=== PATIENT | female | born 1965 | race Caucasian/White ===

== ENCOUNTER 2018-06-04 10:03 | Day surgery (SDC) | payer BC ==
[~2018-06-04 10:03] MED LIST: Sodium Chloride 0.9% 10 ML Syringe FLUSH PRN
[2018-06-04] MEDS: Lactated Ringers 1,000 ML IV SCH (11:00)
[2018-06-04] MEDS ORDERED: Propofol 200 MG/20 ML SDV IV ONE (11:13)
[2018-06-04] MEDS ORDERED: Midazolam 1 MG/ML 2 ML SDV IV ONE (11:13)
[2018-06-04] MEDS ORDERED: Midazolam 1 MG/ML 2 ML SDV ONE (11:17)
[2018-06-04] MEDS ORDERED: Propofol 200 MG/20 ML SDV ONE ×3 (11:17→11:42)
--- NOTE | 2018-06-04 11:17 | PCM.PN ---
- General Info Date of Service: 06/04/18 - Review of Systems Systems Review Comment:: 53-year-old female referred for her initial screening colonoscopy. She notes a chronic history of constipation but no recent change in bowel pattern. She does have some difficulty with hemorrhoids. The patient does not have any known first -degree relatives with colon cancer however does state that her [id number] recently from colon cancer and this is prompting her to proceed with colon cancer screening. She is medically stable to proceed today. I have reviewed her history and physical and no significant changes are noted. I discussed the proposed colonoscopy with the patient. Risks such as but not limited to bleeding and GI injury reviewed. She appears to understand and agrees to proceed. Patient also requests treatment for hemorrhoids. I advised her that I would not plan on surgical hemorrhoidectomy today but she desires hemorrhoid banding and pending findings we will perform this today. Expectations regarding the hemorrhoid banding are discussed. - Patient Data Vitals - Most Recent: Last Vital Signs Temp 99.3 F 06/04/18 10:00 Pulse 76 06/04/18 10:00 Resp 20 06/04/18 10:00 BP 119/79 06/04/18 10:00 Pulse Ox 97 06/04/18 10:00 Weight - Most Recent: 80.739 kg Med Orders - Current: Current Medications Lactated Ringer's (Ringers, Lactated) 1,000 mls @ 50 mls/hr IV ASDIRECTED KATHY Sodium Chloride (Saline Flush) 10 ml FLUSH Q8HR PRN PRN Reason: keep vein open - Problem List Review Problem List Initiated/Reviewed/Updated: Yes - My Orders Last 24 Hours: My Active Orders 06/03/18 14:21 Resuscitation Status Routine 06/04/18 10:00 Patient to Empty Bladder [RC] ASDIRECTED Peripheral IV Care [RC] . DIRECTED Vital Signs [RC] PER UNIT ROUTINE HCG QUALITATIVE,URINE [URCHEM] Routine Lactated Ringers [Ringers, Lactated] 1,000 ml IV ASDIRECTED Sodium Chloride 0.9% [Saline Flush] 10 ml FLUSH Q8HR PRN Peripheral IV Insertion Adult [OM.PC] Routine 06/04/18 11:15 Verify Patient Consent Obtain [RC] ASDIRECTED 06/04/18 Breakfast Nothing Per Oral Diet [DIET] - Assessment Assessment:: Colon cancer screening Hemorrhoids - Plan Plan:: Colonoscopy Possible hemorrhoid banding
--- NOTE | 2018-06-04 11:57 | PCM.OPNOTE ---
- General Post-Op/Procedure Note Date of Surgery/Procedure: 06/04/18 Operative Procedure(s): Colonoscopy. Hemorrhoid Banding Findings: Moderate Sigmoid Diverticulosis Internal and External Hemorrhoids Pre Op Diagnosis: Colon Cancer Screening. Symptomatic Hemorrhoids Post-Op Diagnosis: Sigmoid Diverticulosis. Hemorrhoids Anesthesia Technique: MAC Primary Surgeon: Puneet Rosenbaum Pathology: none Output, Urine Amount: 0 EBL in mLs: 0 Complications: None Condition: Good
--- NOTE | 2018-06-04 17:38 | OR ---
DATE OF SURGERY: 06/04/2018 SURGEON: Puneet Rosenbaum MD PREOPERATIVE DIAGNOSIS: Colon cancer screening and symptomatic hemorrhoids. POSTOPERATIVE DIAGNOSIS: Sigmoid diverticulosis and symptomatic hemorrhoids. OPERATION PERFORMED: Colonoscopy with hemorrhoid banding. INDICATIONS FOR SURGERY: This 53-year-old female presents today for her initial screening colonoscopy. She also has a longstanding history of hemorrhoids with associated symptoms and requests hemorrhoid banding if indicated. FINDINGS: The patient has a moderate degree of sigmoid diverticulosis. No acute inflammation or complications were noted from the diverticula. The remainder of the colon appears normal. No polyps were seen. The patient does have moderate sized internal and external hemorrhoids. DESCRIPTION OF PROCEDURE: The patient is taken to the operating room. She was given intravenous sedation and with her in the left lateral decubitus position, digital rectal exam was performed showing no rectal masses. The Olympus colonoscope was inserted into the rectum. Retroflexed examination of the rectal canal is performed. The scope was then carefully advanced under direct visualization through the entire length of the colon until cecum is reached. Cecal acquisition is confirmed by noting the normal internal cecal anatomy including the appendiceal orifice and ileocecal valve. The light is also noted to transilluminate the abdominal wall in the right lower quadrant. After examining the cecum, the scope was slowly withdrawn, sequentially re-examining the colonic segments until the entire colon and rectum had been fully examined. Hemorrhoids were identified during the exam and as per preop discussion hemorrhoid banding was then carried out. Moderately enlarged internal hemorrhoids at the 11 and 7 o'clock position on the patient's right side were banded. Good tissue purchase was achieved and no sign of complication was identified. The anoscope was removed and the patient was then taken from the operating room in satisfactory condition. ESTIMATED BLOOD LOSS: Zero. COMPLICATIONS: None. PROGNOSIS: Good. /[id number]/MODL
== END 2018-06-04 12:53 | disposition home or self-care (01) ==
LOC: KA.SDS 10:03
PROVIDERS: ATTEND Surgery
DX: K59.00 Constipation, unspecified (principal); K64.8 Other hemorrhoids; K64.4 Residual hemorrhoidal skin tags; K57.30 Diverticulosis of large intestine without perforation or abscess without bleeding; J01.90 Acute sinusitis, unspecified; Z79.82 Long term (current) use of aspirin; Z79.899 Other long term (current) drug therapy; Z88.8 Allergy status to other drugs, medicaments and biological substances
CPT/HCPCS: J2250; J2704; J7120

== ENCOUNTER 2018-09-02 18:39 | Emergency (ER) | payer BC ==
[2018-09-02] MEDS ORDERED: Sulfamethoxazole/Trimethoprim 800-160 MG Tab PO ONE (19:23)
[2018-09-02] MEDS ORDERED: Mupirocin Oint 22 GM Tube TOP ONE (19:23)
[2018-09-02] MEDS ORDERED: Ketorolac 60 MG/2 ML SDV IM ONE (19:23)
--- NOTE | 2018-09-02 19:28 | EDM.PDOC ---
ED HPI GENERAL MEDICAL PROBLEM - General Chief Complaint: General Stated Complaint: POSSIBLE INFECTION AT INCISION Time Seen by Provider: 09/02/18 19:00 Source of Information: Reports: Patient History Limitations: Reports: No Limitations - History of Present Illness INITIAL COMMENTS - FREE TEXT/NARRATIVE: 53 YO WF presents to ER complaining of drainage from incision site. Pt is 2 weeks s/p lymphotomy and breast reduction surgery. Pt reports she's had pain since her surgery but tonight she noticed some drainage from under her left axilla from suture site. Pt denies any erythema but states she's had intermittent swelling bilaterally since her surgery. Pt denies any increased pain, no fever/chills. Pt reports drainage was serosanguineous and foul smelling. Pt has sutures in place and was instructed to follow up with surgery in 2 weeks (4 weeks total) for suture removal. Onset: Today Location: Reports: Upper Extremity, Left Quality: Reports: Ache Severity: Mild Improves with: Reports: None Worsens with: Reports: None Associated Symptoms: Reports: No Other Symptoms - Related Data Allergies Allergy/AdvReac Type Severity Reaction Status Date / Time bupropion HCl Allergy Stomach Verified 09/02/18 19:15 [From Wellbutrin] Upset pregabalin [From Lyrica] Allergy Stomach Verified 09/02/18 19:15 Upset Home Meds: Home Meds Albuterol [Ventolin HFA] 1 - 2 puff INH Q4H PRN 06/12/13 [History] Escitalopram Oxalate [Lexapro] 20 mg PO DAILY 12/15/13 [History] Furosemide [Lasix] 20 mg PO BID PRN 12/15/13 [History] Albuterol Sulfate [Proair Hfa] 1 - 2 puff INH Q4H PRN 06/03/18 [History] Cyanocobalamin (Vitamin B-12) [Vitamin B-12] 1,000 mcg PO DAILY 06/03/18 [ History] Doxepin HCl [Doxepin] 100 mg PO BEDTIME 06/03/18 [History] Pramipexole Di-HCl [Pramipexole Dihydrochloride] 2 - 3 tab PO DAILY 06/03/18 [ History] Sulfamethoxazole/Trimethoprim [Septra DS] 1 each PO BID #20 tab 09/02/18 [Rx] Past Medical History HEENT History: Reports: Sinusitis Cardiovascular History: Reports: None Gastrointestinal History: Reports: None Genitourinary History: Reports: None 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: , Other (See Below) Other BANKRUPTCY MANAGER History: miscarriage Psychiatric History: Reports: Depression Other Psychiatric History: PTSD Hematologic History: Reports: Blood Transfusion(s) - Infectious Disease History Infectious Disease History: Reports: Chicken Pox - Past Surgical History HEENT Surgical History: Reports: Oral Surgery Other HEENT Surgeries/Procedures: oral implants Cardiovascular Surgical History: Reports: Valve Replacement Other Cardiovascular Surgeries/Procedures: 2014 GI Surgical History: Reports: Cholecystectomy Other GI Surgeries/Procedures: bariatric surgery 2010 Female Surgical History: Reports: Tubal Ligation Social & Family History - Caffeine Use Caffeine Use: Reports: Coffee - Living Situation & Occupation Living situation: Reports: Occupation: Employed ED ROS GENERAL - Review of Systems Review Of Systems: See Below Constitutional: Reports: No Symptoms HEENT: Reports: No Symptoms Respiratory: Reports: No Symptoms Cardiovascular: Reports: No Symptoms Endocrine: Reports: No Symptoms GI/Abdominal: Reports: No Symptoms : Reports: No Symptoms Musculoskeletal: Reports: No Symptoms Skin: Reports: Wound (drainage from left axilla suture site). Denies: Erythema Neurological: Reports: No Symptoms Psychiatric: Reports: No Symptoms Hematologic/Lymphatic: Reports: No Symptoms Immunologic: Reports: No Symptoms ED EXAM, GENERAL - Physical Exam Exam: See Below Exam Limited By: No Limitations General Appearance: Alert, WD/WN, No Apparent Distress Head: Atraumatic, Normocephalic Neck: Normal Inspection, Supple, Non-Tender, Full Range of Motion Respiratory/Chest: No Respiratory Distress, Lungs Clear, Normal Breath Sounds, No Accessory Muscle Use, Chest Non-Tender Cardiovascular: Normal Peripheral Pulses, Regular Rate, Rhythm, No Edema, No Gallop, No JVD, No Murmur, No Rub GI/Abdominal: Normal Bowel Sounds, Soft, Non-Tender, No Organomegaly, No Distention, No Abnormal Bruit, No Mass Back Exam: Normal Inspection, Full Range of Motion, NT Extremities: Normal Inspection, Normal Range of Motion, Non-Tender, Normal Capillary Refill, No Pedal Edema Neurological: Alert, Oriented, CN II-XII Intact, Normal Cognition, Normal Gait, Normal Reflexes, No Motor/Sensory Deficits Psychiatric: Normal Affect, Normal Mood Skin Exam: Warm, Intact, Normal Color, No Rash, Wound/Incision (cleat drainage from left axilla suture site). No: Erythema, Increased Warmth Lymphatic: No Adenopathy Course - Orders/Labs/Meds Orders: Active Orders 24 hr Category Date Time Status CULTURE WOUND [RM] Stat Lab 09/02/18 19:01 Ordered Departure - Departure Time of Disposition: :31 Disposition: Home, Self-Care 01 Condition: Good Clinical Impression: Seroma Cellulitis Qualifiers: Site of cellulitis of extremity: axilla Laterality: left - Discharge Information Prescriptions: Sulfamethoxazole/Trimethoprim [Septra DS] 1 each PO BID #20 tab Instructions: Cellulitis, Adult Referrals: Miranda Lemon MD [Primary Care Provider] - Additional Instructions: 1. discharge home 2. septra DS BID x 10 days 3. Bactroban to affected area TID 4. 4x4 dressing to wound 5. follow up with Dr Keith 48-72 hours for recheck 6. return to ER for worsening symptoms - My Orders Last 24 Hours: My Active Orders 09/02/18 19:01 CULTURE WOUND [RM] Stat - Assessment/Plan Last 24 Hours: My Active Orders 09/02/18 19:01 CULTURE WOUND [RM] Stat Assessment:: 1. seroma vs early cellulitis of left axilla Plan: 1. discharge home 2. septra DS BID x 10 days 3. Bactroban to affected area TID 4. 4x4 dressing to wound 5. follow up with Dr Keith 48-72 hours for recheck 6. return to ER for worsening symptoms
== END 2018-09-02 19:50 | disposition home or self-care (01) ==
LOC: KA.ED 18:39
DX: L76.34 Postprocedural seroma of skin and subcutaneous tissue following other procedure (principal); L03.112 Cellulitis of left axilla; F32.9 Major depressive disorder, single episode, unspecified; Z88.8 Allergy status to other drugs, medicaments and biological substances; Z79.899 Other long term (current) drug therapy
CPT/HCPCS: 87070; 87205; 96372; 99283; A9270-GY; J1885

== ENCOUNTER 2018-10-26 16:29 | Emergency (ER) | payer BC ==
[2018-10-26] MEDS ORDERED: Diazepam 5 MG Tab PO ONE ×3 (17:06→19:10)
[2018-10-26] MEDS ORDERED: Sodium Chloride 0.9% 1,000 ML IV ONE (17:06)
--- NOTE | 2018-10-26 17:14 | EDM.PDOC ---
ED HPI GENERAL MEDICAL PROBLEM - General Chief Complaint: General Stated Complaint: SHINGLES, JUSTIN HORSES IN LEG Time Seen by Provider: 10/26/18 16:49 Source of Information: Reports: Patient, Significant Other History Limitations: Reports: No Limitations - History of Present Illness INITIAL COMMENTS - FREE TEXT/NARRATIVE: Patient presents with painful cramping in bilateral medial thighs. This has been a worsening problem for the last 6 weeks. She has seen her PCP for it but hasn't had it worked up completely yet; she is scheduled to see her PCP next week again. Patient also has been dealing with shingles for a few weeks and just finished up her valacyclovir. Ten weeks ago she had bilat breast reductions and had an incision infection but doing well now. Bilateral Upper Leg Pain Score (Numeric/FACES): 10 - Related Data Allergies Allergy/AdvReac Type Severity Reaction Status Date / Time bupropion HCl Allergy Stomach Verified 10/26/18 16:32 [From Wellbutrin] Upset pregabalin [From Lyrica] Allergy Stomach Verified 10/26/18 16:32 Upset Home Meds: Home Meds Albuterol [Ventolin HFA] 1 - 2 puff INH Q4H PRN 06/12/13 [History] Escitalopram Oxalate [Lexapro] 20 mg PO DAILY 12/15/13 [History] Furosemide [Lasix] 20 mg PO BID PRN 12/15/13 [History] Cyanocobalamin (Vitamin B-12) [Vitamin B-12] 1,000 mcg PO DAILY 06/03/18 [ History] Doxepin HCl [Doxepin] 100 mg PO BEDTIME 06/03/18 [History] Pramipexole Di-HCl [Pramipexole Dihydrochloride] 2 - 3 tab PO DAILY 06/03/18 [ History] ALPRAZolam [Alprazolam] 1 - 2 tab PO BEDTIME PRN 10/26/18 [History] Gabapentin [Neurontin] 1 tab PO TID 10/26/18 [History] valACYclovir HCl [valACYclovir] 1 tab PO TID 10/26/18 [History] Past Medical History HEENT History: Reports: Sinusitis Cardiovascular History: Reports: None Respiratory History: Reports: Asthma Gastrointestinal History: Reports: None Genitourinary History: Reports: None 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: , 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 (See Below) Other WAREHOUSE ASSEMBLY WORKER History: miscarriage Psychiatric History: Reports: Depression Other Psychiatric History: PTSD Hematologic History: Reports: Blood Transfusion(s) - Infectious Disease History Infectious Disease History: Reports: Shingles - Past Surgical History HEENT Surgical History: Reports: Oral Surgery Other HEENT Surgeries/Procedures: oral implants Cardiovascular Surgical History: Reports: Valve Replacement Other Cardiovascular Surgeries/Procedures: 2013 GI Surgical History: Reports: Cholecystectomy Other GI Surgeries/Procedures: bariatric surgery 2011 Female Surgical History: Reports: Tubal Ligation Social & Family History - Family History Family Medical History: Noncontributory - Caffeine Use Caffeine Use: Reports: Coffee - Living Situation & Occupation Living situation: Reports: Occupation: Employed ED ROS GENERAL - Review of Systems Review Of Systems: See Below Constitutional: Denies: Fever, Chills, Malaise, Weakness HEENT: Reports: No Symptoms Respiratory: Denies: Shortness of Breath, Cough Cardiovascular: Denies: Chest Pain, Lightheadedness, Syncope Endocrine: Reports: No Symptoms GI/Abdominal: Denies: Abdominal Pain, Nausea, Vomiting : Denies: Dysuria, Flank Pain Musculoskeletal: Reports: Leg Pain. Denies: Neck Pain, Shoulder Pain, Arm Pain , Back Pain, Hand Pain Skin: Denies: Cyanosis, Jaundice, Mottled, Pallor, Diaphoresis Neurological: Denies: Confusion, Dizziness, Seizure, Syncope, Trouble Speaking, Difficulty Walking Psychiatric: Denies: Agitation, Anxiety ED EXAM, GENERAL - Physical Exam Exam: See Below Exam Limited By: No Limitations General Appearance: Alert, WD/WN, No Apparent Distress Eye Exam: Bilateral Eye: EOMI, Normal Inspection, PERRL Ears: Normal External Exam, Hearing Grossly Normal Nose: Normal Inspection, No Blood Throat/Mouth: Normal Inspection, Normal Lips, Normal Voice, No Airway Compromise Head: Atraumatic, Normocephalic Neck: Normal Inspection, Full Range of Motion Respiratory/Chest: No Respiratory Distress, Lungs Clear, Normal Breath Sounds, No Accessory Muscle Use Cardiovascular: Regular Rate, Rhythm, No Murmur Extremities: Normal Range of Motion, Normal Capillary Refill, Other (There are tender muscle spasms in bilateral medial upper thighs) Neurological: Alert, Oriented, Normal Cognition, No Motor/Sensory Deficits Psychiatric: Normal Affect, Normal Mood, Anxious Skin Exam: Warm, Dry, Intact, Normal Color, No Rash, Other (Incisions from recent surgery are healing nicely without erythema or sign of infection.) Course - Vital Signs Last Recorded V/S: Last Vital Signs Temp 98.8 F 10/26/18 16:32 Pulse 90 10/26/18 18:45 Resp 16 10/26/18 18:45 BP 138/91 H 10/26/18 18:45 Pulse Ox 97 10/26/18 18:45 - Orders/Labs/Meds Labs: Laboratory Tests 10/26/18 10/26/18 10/26/18 Range/Units 17:20 17:20 17:20 WBC 13.05 H (5.00-10.00) 10^3/uL RBC 4.04 (3.80-5.50) 10^6/uL Hgb 11.1 L D (12.0-16.0) g/dL Hct 34.5 L (37.0-47.0) % MCV 85.4 (82.0-92.0) fL MCH 27.5 (27.0-31.0) pg MCHC 32.2 (32.0-36.0) g/dL RDW 14.8 H (11.5-14.5) % Plt Count 282 (150-400) 10^3/uL MPV 8.7 (7.4-10.4) fL Immature Gran % (Auto) 0.2 (0.0-5.0) % Neut % (Auto) 59.8 (50.0-70.0) % Lymph % (Auto) 29.8 (20.0-40.0) % Lucas % (Auto) 8.6 H (2.0-8.0) % Eos % (Auto) 1.1 (1.0-3.0) % Baso % (Auto) 0.5 (0.0-1.0) % Immature Gran # (Auto) 0.02 (0.00-0.50) 10^3/uL Neut # (Auto) 7.82 H (2.50-7.00) 10^3/uL Lymph # (Auto) 3.89 (1.00-4.00) 10^3/uL Lucas # (Auto) 1.12 H (0.10-0.80) 10^3/uL Eos # (Auto) 0.14 (0.10-0.30) 10^3/uL Baso # (Auto) 0.06 (0.00-0.10) 10^3/uL Sodium 144 (136-145) mmol/L Potassium 4.9 (3.3-5.3) mmol/L Chloride 107 (98-115) mmol/L Carbon Dioxide 27.0 (21.0-32.0) mmol/L Anion Gap 14.9 (5-15) mmol/L BUN 13 (6-25) mg/dL Creatinine 0.72 (0.51-1.17) mg/dL Est Cr Clr Drug Dosing 86.86 mL/min Estimated GFR (MDRD) > 60 mL/min Glucose 63 L (75 - 99) mg/dL Lactic Acid 1.6 (0.4-2.0) mmol/L Calcium 9.0 (8.7-10.3) mg/dL Magnesium 2.4 (1.8-2.4) mg/dL Meds: Medications Discontinued Medications Generic Name Dose Route Start Last Admin Trade Name Sha PRN Reason Stop Dose Admin Diazepam 5 mg 10/26/18 17:06 10/26/18 17:11 Valium. PO 10/26/18 17:07 5 mg ONETIME ONE Administration Diazepam 5 mg 10/26/18 17:17 10/26/18 17:23 Valium. PO 10/26/18 17:18 5 mg ONETIME ONE Administration Diazepam 30 mg 10/26/18 19:10 Valium. PO 10/26/18 19:11 ONETIME ONE Sodium Chloride 1,000 mls @ 999 mls/hr 10/26/18 17:06 10/26/18 17:25 Normal Saline IV 10/26/18 18:06 999 mls/hr .BOLUS ONE Administration - Re-Assessments/Exams Free Text/Narrative Re-Assessment/Exam: 10/26/18 17:44 WBC is 13 but patient denies any dysuria, cough or skin infections. She has been vomiting fairly often due to the leg pain which is likely the cause of the leukocytosis. She is afebrile. Fluids are running and we gave her Valium 10 mg. She is looking more comfortable but says the muscles are still cramped in the right thigh and the pain is shifting down to the anterior lower legs and ankles. 10/26/18 19:17 Patient is feeling much better and feels ready to go home. We discussed findings and treatment plan in detail, including no Xanax or narcotics while using Valium. And no driving. She will follow up with Dr. Esposito next week for further workup and evaluation of the spasms. BMP shows no electrolyte abnormalities and magnesium was also normal today. Pt discharged to home in stable condition. 10/26/18 19:28 A take-home pack of valium was sent to cover until Sunday morning. Departure - Departure Time of Disposition: 19:04 Disposition: Home, Self-Care 01 Condition: Good Clinical Impression: Leg muscle spasm Qualifiers: Laterality: bilateral Qualified Code(s): M62.838 - Other muscle spasm - Discharge Information Instructions: Muscle Cramps and Spasms, [id number] Referrals: Miranda Lemon MD [Primary Care Provider] - Forms: ED Department Discharge Additional Instructions: 1. Continue to drink lots of water. 2. Take the Valium as directed. 3. Don't take your Xanax (Alprazolam) or any Hydrocodone or other narcotics while using Valium. 4. Avoid driving while using Valium. 5. Follow up with Dr. Esposito next week as planned or earlier if needed.
[2018-10-26 17:52] LABS: ANION GAP 14.9 mmol/L (5-15); CHLORIDE,CL 107 mmol/L (98-115); SODIUM,NA 144 mmol/L (136-145)
== END 2018-10-26 19:25 | disposition home or self-care (01) ==
LOC: KA.ED 16:29
DX: M62.838 Other muscle spasm (principal); J45.909 Unspecified asthma, uncomplicated; F32.9 Major depressive disorder, single episode, unspecified; Z79.899 Other long term (current) drug therapy; Z88.8 Allergy status to other drugs, medicaments and biological substances
CPT/HCPCS: 80048; 83605; 83735; 85025; 96360; 99284; A9270; J7030; 36415